=== PATIENT | female | born 1955 | race Caucasian/White ===

== ENCOUNTER 2017-04-10 08:52 | Emergency (ER) | payer OTHER ==
--- NOTE | 2017-04-10 09:11 | ED.ADGEN ---
Past History Past Medical History: Arthritis Additional Past Surgical Histo: knee surgery Smoking: Cigarettes Alcohol Use: None Drug Use: None Social History Narrative: lives at home Adult General HPI HPI Patient is a 61 year old email who presents with concerns for stroke which actually had occurred 2-3 months ago the daughter was concerned that and never got evaluated the patient had persistent symptoms: Deficits included left arm weakness and some slight gait instability and perhaps some slurred speech questionable receptive or expressive aphasia. Recently seen by primary care physician 1 week ago with blood work obtained MRI was ordered but never obtained. Patient denies headache blurry vision shortness of breath chest pain abdominal pain or poor oral intake. Denies any new deficits. Review of Systems Review of Systems Constitutional: Denies fever or chills [] Eyes: Denies change in visual acuity, redness, or eye pain [] HENT: Denies nasal congestion or sore throat [] Respiratory: Denies cough or shortness of breath [] Cardiovascular: No additional information not addressed in HPI [] GI: Denies abdominal pain, nausea, vomiting, bloody stools or diarrhea [] : Denies dysuria or hematuria [] Musculoskeletal: Denies back pain or joint pain [] Integument: Denies rash or skin lesions [] Neurologic: Denies headache, focal weakness or sensory changes [] Endocrine: Denies polyuria or polydipsia [] Current Medications Current Medications Current Medications Medications (Trade) Dose Ordered Sig/Natividad Start Time Stop Time Status Last Admin Dose Admin Iohexol (Omnipaque 300 Mg/ml) 75 ml 1X ONCE 04/10/17 09:30 04/10/17 09:31 DC Allergies Allergies Allergies Coded Allergies Type Severity Reaction Last Updated Verified Penicillins Allergy Intermediate 04/10/17 Yes Physical Exam Physical Exam Constitutional: Well developed, well nourished, no acute distress, non-toxic appearance. [] HENT: Normocephalic, atraumatic, bilateral external ears normal, oropharynx moist, no oral exudates, nose normal. [] Eyes: PERRLA, EOMI, conjunctiva normal, no discharge. [] Neck: Normal range of motion, no tenderness, supple, no stridor. [] Cardiovascular:Heart rate regular rhythm, systolic ejection murmur 2 out of 6 heard best over the aortic valve [] Lungs & Thorax: Bilateral breath sounds clear to auscultation [] Abdomen: Bowel sounds normal, soft, no tenderness, no masses, no pulsatile masses. [] Skin: Warm, dry, no erythema, no rash. [] Back: No tenderness, no CVA tenderness. [] Extremities: No tenderness, no cyanosis, no clubbing, ROM intact, no edema. 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 Coordination slightly decreased with a left arm on finger to nose, normal sensory function, slight decrease in strength to the left leg. [NIH score estimated at approx 4] Psychologic: Affect normal, judgement normal, mood normal. [] Current Patient Data Vital Signs Vital Signs Date Time Temp Pulse Resp B/P (MAP) Pulse Ox O2 Delivery O2 Flow Rate FiO2 04/10/17 09:16 97.8 97 18 98 Room Air Lab Results Laboratory Tests Test 04/10/17 09:16 White Blood Count 7.5 x10^3/uL (4.0-11.0) Red Blood Count 5.56 x10^6/uL (3.50-5.40) H Hemoglobin 15.4 g/dL (12.0-15.5) Hematocrit 45.8 % (36.0-47.0) Mean Corpuscular Volume 82 fL (79-100) Mean Corpuscular Hemoglobin 28 pg (25-35) Mean Corpuscular Hemoglobin Concent 34 g/dL (31-37) Red Cell Distribution Width 14.4 % (11.5-14.5) Platelet Count 290 x10^3/uL (140-400) Neutrophils (%) (Auto) 69 % (31-73) Lymphocytes (%) (Auto) 21 % (24-48) L Monocytes (%) (Auto) 7 % (0-9) Eosinophils (%) (Auto) 2 % (0-3) Basophils (%) (Auto) 1 % (0-3) Neutrophils # (Auto) 5.2 x10^3uL (1.8-7.7) Lymphocytes # (Auto) 1.6 x10^3/uL (1.0-4.8) Monocytes # (Auto) 0.6 x10^3/uL (0.0-1.1) Eosinophils # (Auto) 0.1 x10^3/uL (0.0-0.7) Basophils # (Auto) 0.0 x10^3/uL (0.0-0.2) EKG EKG EKG shows sinus rhythm rate of 89 no STEMI QTC of 461 with a left axis deviation time of interpretation 0 9:31 AM [] Radiology/Procedures Radiology/Procedures CTA head and neck Chest x-ray [] Course & Med Decision Making Course & Med Decision Making Pertinent Labs and Imaging studies reviewed. (See chart for details) [] Final Impression Final Impression [] Problems: Dragon Disclaimer Dragon Disclaimer This electronic medical record was generated, in whole or in part, using a voice recognition dictation system. SKYLAR SULTANA MD Apr 10, 2017 09:11
[2017-04-10] MEDS ORDERED: IOHEXOL 300 MG/ML 75 ML VIAL. IV ONE (09:30)
--- NOTE | 2017-04-10 09:31 | EKG ---
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
[2017-04-10 09:33] LABS: BASO % 1 % (0-3); EOS # 0.1 x10^3/uL (0.0-0.7); EOS % 2 % (0-3); HEMATOCRIT 45.8 % (36.0-47.0); HEMOGLOBIN 15.4 g/dL (12.0-15.5); LYMPH # 1.6 x10^3/uL (1.0-4.8); LYMPH % 21 % (24-48); MEAN CORPUSCULAR HEMOGLOBIN 28 pg (25-35); MEAN CORPUSCULAR HGB CONC 34 g/dL (31-37); MEAN CORPUSCULAR VOLUME 82 fL (79-100); MONO # 0.6 x10^3/uL (0.0-1.1); MONO % 7 % (0-9); NEUT # 5.2 x10^3uL (1.8-7.7); NEUT % 69 % (31-73); PLATELET COUNT 290 x10^3/uL (140-400); RED BLOOD COUNT 5.56 x10^6/uL (3.50-5.40); RED CELL DISTRIBUTION WIDTH 14.4 % (11.5-14.5); WHITE BLOOD COUNT 7.5 x10^3/uL (4.0-11.0)
[2017-04-10 09:44] LABS: ALBUMIN 3.6 g/dL (3.4-5.0); ALBUMIN/GLOBULIN RATIO 0.8 (1.0-1.7); CALCIUM 9.3 mg/dL (8.5-10.1); CREATININE 0.8 mg/dL (0.6-1.0); GFR 72.9; POTASSIUM 3.5 mmol/L (3.5-5.1); TOTAL BILIRUBIN 0.7 mg/dL (0.2-1.0); TOTAL PROTEIN 7.9 g/dL (6.4-8.2)
--- NOTE | 2017-04-10 10:58 | RAD ---
CTA of the neck and head with contrast 04/10/2017 Clinical history: Prior stroke symptoms with left arm weakness for 2 months. Technique: After the intravenous administration of 75 cc of Omnipaque 300, contiguous, 0.625 mm axial sections were obtained through the upper chest, neck and head. Multiplanar 3-D MIP and volume rendered 3-D reconstructed images were obtained. One or more of the following individualized dose reduction techniques were utilized for this study: 1. Automated exposure control. 2. Adjustment of the mA and/or kV according to patient size. 3. Use of iterative reconstruction technique. Stenosis calculations for CTA are based upon the NASCET methodology. Findings: Mild to moderate atherosclerotic plaque formation is seen involving the thoracic aortic arch and its branches. The origin of the brachiocephalic artery is patent. A 50% stenosis is seen involving the proximal left common carotid artery at its origin. This measures 6 mm in length. Moderate atheromatous plaque formation is seen involving the left subclavian artery. No hemodynamically significant stenosis is seen. The origin of the right vertebral artery is patent. The origin of the left vertebral artery is not well evaluated due to its orientation but appears to be grossly patent. Mild to moderate atheromatous/atherosclerotic plaque formation is seen involving both carotid bifurcations and proximal internal carotid arteries bilaterally. No hemodynamically significant stenosis is seen. Both internal carotid arteries within the neck appear small but patent. The left vertebral artery is dominant. Both vertebral arteries demonstrate normal antegrade flow. No area of stenosis or occlusion is seen. Intracranially scattered atherosclerotic plaque formation is seen involving the cavernous portions of both internal carotid arteries. No area of stenosis or occlusion is seen. The basilar artery is patent. The anterior, middle and posterior cerebral arteries and their branches are patent. No area of stenosis or occlusion is seen. No intracranial aneurysm is noted. Mild to moderate mucosal thickening is seen throughout the paranasal sinuses. No acute soft tissue abnormality is seen involving the neck. Degenerative changes are seen involving the uncovertebral and facet joints throughout the cervical spine. Impression: 1. A 50% stenosis is seen involving the proximal left common carotid artery at its origin. This measures 6 millimeters in length. 2. Mild to moderate atheromatous/atherosclerotic plaque formation is seen involving both carotid bifurcations. No hemodynamically significant stenosis or area of occlusion is seen. 3. No intracranial stenosis or area of occlusion is seen.
--- NOTE | 2017-04-10 10:59 | RAD ---
EXAM: Chest one view. HISTORY: Cerebrovascular accident, heart murmur. COMPARISON: 07/17/2016. FINDINGS: A frontal view of the chest is obtained. There is mild basilar atelectasis. Scattered calcified granulomas are noted bilaterally. There is no pneumothorax or pleural effusion. The heart is not enlarged. There are atherosclerotic calcifications of the aorta. IMPRESSION: 1. No confluent infiltrates.
[2017-04-10 12:25] VITALS: BP 152/83
== END 2017-04-10 13:04 | disposition home or self-care (01) ==
LOC: ER 08:52
DX: R53.1 Weakness (principal); R47.81 Slurred speech; M19.90 Unspecified osteoarthritis, unspecified site; F17.210 Nicotine dependence, cigarettes, uncomplicated; Z88.0 Allergy status to penicillin
CPT/HCPCS: 36415; 70496; 70498; 71010; 80053; 84484; 85027; 93005; 99285; Q9967

== ENCOUNTER → 2017-05-23 | Outpatient (CLI) | payer OTHER ==
--- NOTE | 2017-05-23 15:32 | RAD ---
Lumbar spine, 5 views, 05/23/2017: History: Back pain There is a mild left convexity lumbar scoliosis. The lumbar vertebral heights are well-maintained. There are mild scattered marginal spurs. There is mild narrowing of the L5-S1 disc space. There are mild degenerative changes involving the facet joints in the lower lumbar spine with a slight associated spondylolisthesis at L4-5. There is no evidence of spondylolysis. Aortoiliac calcific plaquing is present. IMPRESSION: 1. Mild scattered degenerative changes. 2. Minimal spondylolisthesis at L4-5 due to facet joint arthropathy. 3. No acute bony abnormality is detected. Thoracic spine, 3 views, 05/23/2017: The vertebral heights are well-maintained. There are mild scattered marginal spurs. No fracture or dislocation is evident. IMPRESSION: 1. Mild marginal spurring. 2. No acute abnormality is detected.
== END | disposition home or self-care (01) ==
LOC: DXRADRC 14:54
PROVIDERS: ATTEND Physician Assistant Medical
DX: M43.16 Spondylolisthesis, lumbar region (principal); M12.88 Other specific arthropathies, not elsewhere classified, other specified site
CPT/HCPCS: 72072; 72110

== ENCOUNTER 2017-12-08 12:05 | Observation (INO) | payer OTHER ==
[~2017-12-08] VITALS: Ht 157.5 cm; Wt 64.9 kg
--- NOTE | 2017-12-08 12:57 | RAD ---
PQRS Compliance Statement: One or more of the following individualized dose reduction techniques were utilized for this examination: 1. Automated exposure control 2. Adjustment of the mA and/or kV according to patient size 3. Use of iterative reconstruction technique CT HEAD AND CERVICAL SPINE WITHOUT CONTRAST History: fall yesterday, headache and dizziness with neck pain. Comparison: None. Procedure: Axial images are obtained of the head from the skull base through the vertex without IV contrast. Noncontrast helical CT of the cervical spine was performed. Axial, sagittal, and coronal reconstructions were obtained. Head Findings: The ventricles and sulci are prominent, consistent with age-related cerebral atrophy. There is scattered periventricular white matter hypoattenuation. This is a nonspecific finding but is commonly due to chronic small vessel ischemic disease in a patient of this age. Old left basal ganglia lacunar infarct. There are old lacunar infarcts of the right and left centrum semiovale that are new from prior study. No mass-effect, midline shift, hemorrhage or obvious acute infarction is identified. Basilar cisterns are patent. Bone windows demonstrate no significant calvarial abnormality. The visualized paranasal sinuses appear clear. Mastoid air cells are well aerated. Cervical Spine Findings: There is no evidence of acute fracture or acute malalignment. No jumped or perched facets. Mild facet hypertrophy. The vertebral body height and alignment are maintained. Straightening of normal cervical lordosis may be positional or due to muscle spasm. There is disc space narrowing and degenerative endplate spurring that is most advanced at C5/C6. Visualized soft tissues of the neck demonstrate no significant abnormalities. The visualized lung apices are clear. IMPRESSION: 1. No acute intracranial abnormality. Chronic findings as above. 2. No acute fracture of the cervical spine.
--- NOTE | 2017-12-08 13:21 | PHYS DOC ---
Past History Past Medical History: Arthritis, CVA, Diabetes, High Cholesterol, Hypertension Past Surgical History: Knee Replacement Additional Past Surgical Histo: knee surgery Smoking: Quit Greater Than 1 Year Alcohol Use: None Drug Use: None Adult General Chief Complaint Chief Complaint: LOWEREXTREMITY INJURY HPI HPI 61-year-old female patient had an unwitnessed fall at home while she was at shower and complaining of pain in left hip. Patient complaining of pain in left knee and hip area at arrival to ER and denies loss of consciousness. Patient's family member states she does not have change of mental status and was able to walk but it was painful. Patient currently taking Plavix. Review of Systems Review of Systems Constitutional: Denies fever or chills [] Eyes: Denies change in visual acuity, redness, or eye pain [] HENT: Denies nasal congestion or sore throat [] Respiratory: Denies cough or shortness of breath [] Cardiovascular: No additional information not addressed in HPI [] GI: Denies abdominal pain, nausea, vomiting, bloody stools or diarrhea [] : Denies dysuria or hematuria [] Musculoskeletal: Denies back pain, reports joint pain [] Integument: Denies rash or skin lesions [] Neurologic: Denies headache, focal weakness or sensory changes [] Endocrine: Denies polyuria or polydipsia [] All other systems were reviewed and found to be within normal limits, except as documented in this note. Allergies Allergies Allergies Coded Allergies Type Severity Reaction Last Updated Verified Penicillins Allergy Intermediate 04/10/17 Yes Physical Exam Physical Exam Constitutional: Well nourished, mild distress, non-toxic appearance. [] HENT: Normocephalic, atraumatic, bilateral external ears normal, oropharynx moist, no oral exudates, nose normal. [] Eyes: PERRLA, EOMI, conjunctiva normal, no discharge. [] Neck: Normal range of motion, no tenderness, supple, no stridor. [] Cardiovascular:Heart rate regular rhythm, no murmur [] Lungs & Thorax: Bilateral breath sounds clear to auscultation [] Abdomen: Bowel sounds normal, soft, no tenderness, no masses, no pulsatile masses. [] Skin: Warm, dry, no erythema, no rash. [] Back: No tenderness, no CVA tenderness. [] Extremities: Atraumatic, no deformity, mild tenderness in left pubis area, normal range of motion of pelvis and knee, no contusion Neurologic: Alert and oriented X 3, normal motor function, normal sensory function, no focal deficits noted. [] Psychologic: Affect normal, judgement normal, mood normal. [] Current Patient Data Vital Signs Vital Signs Date Time Temp Pulse Resp B/P (MAP) Pulse Ox O2 Delivery O2 Flow Rate FiO2 12/08/17 12:20 97.4 89 18 100 Room Air EKG EKG [ [address] [address] IMAGING REPORT Signed PATIENT: YURI THOMAS ACCOUNT: [id number] : 1955 LOCATION: ER AGE: 61 SEX: F EXAM [id number] STATUS: REG ER ORD. PHYSICIAN: BENEDICT THORNTON MD REASON: Fell PROCEDURE: HIP LEFT 2V WITH PELVIS; KNEE LEFT 3V KNEE LEFT 3V, HIP LEFT 2V WITH PELVIS Clinical Indication: Fell yesterday, knee and hip pain. Comparison: None. Findings: There is a nondisplaced possibly incomplete fracture of the left inferior pubic ramus. The fracture is favored to be acute. No other pelvic fracture is identified. Sacroiliac joints are symmetric. The hip joints are intact. No acute fracture or dislocation of the left hip. There is a lateral plate and screws of the proximal tibia. There are marginal osteophytes of all 3 compartments of the knee. Chronic deformity of the lateral tibial plateau. No acute fracture about the knee. No joint effusion is seen. IMPRESSION: 1. Acute nondisplaced possibly incomplete fracture of the left inferior pubic ramus. 2. No acute fracture of the left hip or knee. DICTATED AND SIGNED BY: BRANDON JUARES MD [address] [address] IMAGING REPORT Signed PATIENT: YURI THOMAS ACCOUNT: [id number] : 1955 LOCATION: ER AGE: 61 SEX: F EXAM STATUS: REG ER ORD. PHYSICIAN: BENEDICT THORNTON MD REASON: fall PROCEDURE: CT HEAD AND CERVICAL SPINE WO RS Compliance Statement: One or more of the following individualized dose reduction techniques were utilized for this examination: 1. Automated exposure control 2. Adjustment of the mA and/or kV according to patient size 3. Use of iterative reconstruction technique CT HEAD AND CERVICAL SPINE WITHOUT CONTRAST History: fall yesterday, headache and dizziness with neck pain. Comparison: None. Procedure: Axial images are obtained of the head from the skull base through the vertex without IV contrast. Noncontrast helical CT of the cervical spine was performed. Axial, sagittal, and coronal reconstructions were obtained. Head Findings: The ventricles and sulci are prominent, consistent with age-related cerebral atrophy. There is scattered periventricular white matter hypoattenuation. This is a nonspecific finding but is commonly due to chronic small vessel ischemic disease in a patient of this age. Old left basal ganglia lacunar infarct. There are old lacunar infarcts of the right and left centrum semiovale that are new from prior study. No mass-effect, midline shift, hemorrhage or obvious acute infarction is identified. Basilar cisterns are patent. Bone windows demonstrate no significant calvarial abnormality. The visualized paranasal sinuses appear clear. Mastoid air cells are well aerated. Cervical Spine Findings: There is no evidence of acute fracture or acute malalignment. No jumped or perched facets. Mild facet hypertrophy. The vertebral body height and alignment are maintained. Straightening of normal cervical lordosis may be positional or due to muscle spasm. There is disc space narrowing and degenerative endplate spurring that is most advanced at C5/C6. Visualized soft tissues of the neck demonstrate no significant abnormalities. The visualized lung apices are clear. IMPRESSION: 1. No acute intracranial abnormality. Chronic findings as above. 2. No acute fracture of the cervical spine. DICTATED AND SIGNED BY: BRANDON JUARES MD DATE: 12/08/17 1247 CC: BENEDICT THORNTON MD; MELQUIADES MEDEROS ~ DATE: 12/08/17 1354 CC: BENEDICT THORNTON MD; MELQUIADES MEDEROS ~ ] Radiology/Procedures Radiology/Procedures [] [address] [address] IMAGING REPORT Signed PATIENT: YURI THOMAS ACCOUNT: [id number] : 1955 LOCATION: ER AGE: 61 SEX: F EXAM STATUS: REG ER ORD. PHYSICIAN: BENEDICT THORNTON MD REASON: fall PROCEDURE: CT HEAD AND CERVICAL SPINE [facility] Compliance Statement: One or more of the following individualized dose reduction techniques were utilized for this examination: 1. Automated exposure control 2. Adjustment of the mA and/or kV according to patient size 3. Use of iterative reconstruction technique CT HEAD AND CERVICAL SPINE WITHOUT CONTRAST History: fall yesterday, headache and dizziness with neck pain. Comparison: None. Procedure: Axial images are obtained of the head from the skull base through the vertex without IV contrast. Noncontrast helical CT of the cervical spine was performed. Axial, sagittal, and coronal reconstructions were obtained. Head Findings: The ventricles and sulci are prominent, consistent with age-related cerebral atrophy. There is scattered periventricular white matter hypoattenuation. This is a nonspecific finding but is commonly due to chronic small vessel ischemic disease in a patient of this age. Old left basal ganglia lacunar infarct. There are old lacunar infarcts of the right and left centrum semiovale that are new from prior study. No mass-effect, midline shift, hemorrhage or obvious acute infarction is identified. Basilar cisterns are patent. Bone windows demonstrate no significant calvarial abnormality. The visualized paranasal sinuses appear clear. Mastoid air cells are well aerated. Cervical Spine Findings: There is no evidence of acute fracture or acute malalignment. No jumped or perched facets. Mild facet hypertrophy. The vertebral body height and alignment are maintained. Straightening of normal cervical lordosis may be positional or due to muscle spasm. There is disc space narrowing and degenerative endplate spurring that is most advanced at C5/C6. Visualized soft tissues of the neck demonstrate no significant abnormalities. The visualized lung apices are clear. IMPRESSION: 1. No acute intracranial abnormality. Chronic findings as above. 2. No acute fracture of the cervical spine. DICTATED AND SIGNED BY: BRANDON JUARES MD DATE: 12/08/17 1249 CC: BENEDICT THORNTON MD; MELQUIADES MEDEROS ~ Course & Med Decision Making Course & Med Decision Making Pertinent Labs and Imaging studies reviewed. (See chart for details) [ Evaluation of patient in ER showed 61-year-old female patient with a fall and complaining of pain in left hip area. Patient had nondisplaced fracture of inferior pubis ramus. Labs was unremarkable. Plan to admit patient was of pubis fracture. Dr. Mccray accepted admission at 1422. Dragon Disclaimer Dragon Disclaimer This electronic medical record was generated, in whole or in part, using a voice recognition dictation system. Departure Departure: Impression: Primary Impression: Closed fracture of left inferior pubic ramus Additional Impressions: Fall at home History of diabetes mellitus Disposition: 09 ADMITTED INPATIENT (At 1423) Condition: IMPROVED Referrals: MELQUIADES MEDEROS (PCP) Problem Qualifiers BENEDICT THORNTON MD Dec 08, 2017 13:21
[2017-12-08] MEDS ORDERED: ACET-704 PO (14:01)
--- NOTE | 2017-12-08 14:03 | RAD ---
KNEE LEFT 3V, HIP LEFT 2V WITH PELVIS Clinical Indication: Fell yesterday, knee and hip pain. Comparison: None. Findings: There is a nondisplaced possibly incomplete fracture of the left inferior pubic ramus. The fracture is favored to be acute. No other pelvic fracture is identified. Sacroiliac joints are symmetric. The hip joints are intact. No acute fracture or dislocation of the left hip. There is a lateral plate and screws of the proximal tibia. There are marginal osteophytes of all 3 compartments of the knee. Chronic deformity of the lateral tibial plateau. No acute fracture about the knee. No joint effusion is seen. IMPRESSION: 1. Acute nondisplaced possibly incomplete fracture of the left inferior pubic ramus. 2. No acute fracture of the left hip or knee.
[2017-12-08 14:44] LABS: BASO % 0 % (0-3); EOS # 0.1 x10^3/uL (0.0-0.7); EOS % 1 % (0-3); HEMATOCRIT 42.2 % (36.0-47.0); HEMOGLOBIN 14.4 g/dL (12.0-15.5); LYMPH % 18 % (24-48); MEAN CORPUSCULAR HEMOGLOBIN 29 pg (25-35); MEAN CORPUSCULAR HGB CONC 34 g/dL (31-37); MEAN CORPUSCULAR VOLUME 84 fL (79-100); MONO # 0.8 x10^3/uL (0.0-1.1); MONO % 7 % (0-9); NEUT # 7.9 x10^3uL (1.8-7.7); NEUT % 73 % (31-73); PLATELET COUNT 300 x10^3/uL (140-400); RED BLOOD COUNT 5.02 x10^6/uL (3.50-5.40); RED CELL DISTRIBUTION WIDTH 15.6 % (11.5-14.5); WHITE BLOOD COUNT 10.8 x10^3/uL (4.0-11.0)
[2017-12-08 14:55] LABS: ALBUMIN 3.6 g/dL (3.4-5.0); ALBUMIN/GLOBULIN RATIO 0.9 (1.0-1.7); CALCIUM 9.5 mg/dL (8.5-10.1); CREATININE 0.8 mg/dL (0.6-1.0); GFR 72.9; POTASSIUM 4.1 mmol/L (3.5-5.1); TOTAL BILIRUBIN 0.8 mg/dL (0.2-1.0); TOTAL PROTEIN 7.8 g/dL (6.4-8.2)
[2017-12-08] MEDS ORDERED: ASPI-630 PO (15:57)
[2017-12-08] MEDS ORDERED: CLOP75TA57 PO (15:58)
[2017-12-08] MEDS ORDERED: INSU100C SQ (15:58)
[2017-12-08 16:14] VITALS: BP 148/67
[2017-12-08] MEDS ORDERED: ATORVASTATIN CA80 MG PO (16:26)
[2017-12-08] MEDS ORDERED: LISI10TA2 PO (16:26)
[2017-12-08] MEDS ORDERED: INSU100I13 SQ (16:26)
[2017-12-08] MEDS: INSULIN ASPART 300 UNITS/3 ML INSULN.PEN SQ SCH (17:30)
[2017-12-08] MEDS: CLOPIDOGREL BISULFATE 75 MG TABLET PO SCH (17:38)
[2017-12-08] MEDS: LISINOPRIL 10 MG TABLET PO SCH (17:38)
[2017-12-08] MEDS: ASPIRIN 81 MG TAB.CHEW PO SCH (17:39)
[2017-12-08 18:57] VITALS: BP 139/65
[2017-12-08] MEDS: ATORVASTATIN CALCIUM 20 MG TABLET PO SCH (21:46)
[2017-12-08] MEDS: INSULIN DETEMIR 300 UNITS/3 ML INSULN.PEN. SQ SCH (21:51)
[2017-12-08 22:28] VITALS: BP 105/63
[2017-12-09 06:20] VITALS: BP 106/58
[2017-12-09] MEDS ORDERED: ENOXAPARIN 30 MG/0.3 ML DISP.SYRIN. SQ SCH (06:30)
[2017-12-09] MEDS: INSULIN ASPART 300 UNITS/3 ML INSULN.PEN SQ SCH ×4 (07:30→21:09)
[2017-12-09] MEDS ORDERED: DEXTROSE 50% 25 GM / 50ML DISP.SYRIN. IV PRN (08:30)
[2017-12-09] MEDS: LISINOPRIL 10 MG TABLET PO SCH (08:34)
[2017-12-09] MEDS: ASPIRIN 81 MG TAB.CHEW PO SCH (08:34)
[2017-12-09] MEDS: CLOPIDOGREL BISULFATE 75 MG TABLET PO SCH (08:34)
[2017-12-09] MEDS ORDERED: PNEUMOC CONJ VACC 23-VALENT 0.5 ML VIAL. VAX IM ONE (09:00)
[2017-12-09] MEDS ORDERED: LISINOPRIL 10 MG TABLET PO SCH (09:00)
[2017-12-09] MEDS ORDERED: CLOPIDOGREL BISULFATE 75 MG TABLET PO SCH (09:00)
[2017-12-09] MEDS ORDERED: ATORVASTATIN CALCIUM 20 MG TABLET PO SCH (09:00)
[2017-12-09] MEDS ORDERED: ASPIRIN 81 MG TAB.CHEW PO SCH (09:00)
[2017-12-09 10:53] VITALS: BP 90/59
[2017-12-09 15:09] VITALS: BP 117/57
[2017-12-09] MEDS ORDERED: INSULIN ASPART 300 UNITS/3 ML INSULN.PEN SQ SCH (16:30)
[2017-12-09 19:36] VITALS: BP 144/78
[2017-12-09] MEDS: ATORVASTATIN CALCIUM 20 MG TABLET PO SCH (21:10)
[2017-12-09] MEDS: traMADol 50 MG TABLET PO PRN (21:11)
[2017-12-09] MEDS: INSULIN DETEMIR 300 UNITS/3 ML INSULN.PEN. SQ SCH (21:16)
[2017-12-09 22:42] LABS: CLARITY,URINE CLOUDY; COLOR,URINE YELLOW
[2017-12-09 22:43] LABS: BACTERIA,URINE MANY /HPF (0-FEW); BILIRUBIN,URINE NEG (NEG); GLUCOSE,URINE NEG (NEG); NITRITE,URINE POS (NEG); RBC,URINE 0 /HPF (0-2); SQUAMOUS EPITHELIAL CELL,UR FEW /LPF; UROBILINOGEN,URINE 1 mg/dL (0.2 mg/dL); WBC,URINE >40 /HPF (0-4)
--- NOTE | 2017-12-09 23:35 | HP ---
ADMIT DATE: 12/08/2017 REASON FOR ADMISSION: Fall with fractured pubic rami. HISTORY OF PRESENT ILLNESS: This is a 61-year-old female who was getting out of the shower yesterday and when she was getting dressed, she fell, complaining of left knee pain as well as some hip pain, found to have an incomplete fracture of the pubic rami, was able to walk, was having a lot of pain. No loss of consciousness. PAST MEDICAL HISTORY: CVA, hypertension, diabetes. IMMUNIZATIONS: I am not sure whether she got the flu shot. HABITS: No alcohol. Quit smoking a year ago, used to work at [employer], now retired. She lives at home. Daughter lives with her. The patient no longer drives. She states her daughter will not let her because of her stroke. REVIEW OF SYSTEMS: Positive for tickle in her throat. No shortness of breath, no chest pain, no fever. Denies urinary problems. Denies problems with her bowel. Denies weight change. PHYSICAL EXAMINATION: VITAL SIGNS: Blood pressure 106/58, pulse 77, respirations 20, pulse ox 97% on 2.5 liters, temperature 98.1. GENERAL: A pleasant 61-year-old, in no acute distress. HEENT: Hearing is normal. Pupils are equal, round, and reactive to light. Extraocular muscles were intact. Nose is patent. Throat clear. Has a little bit of postnasal drip. NECK: Supple, without adenopathy. LUNGS: Clear to auscultation without wheezes or rhonchi, but she does have a slight cough. CARDIOVASCULAR: Regular rhythm and rate with a 2/6 murmur heard at the aortic area. ABDOMEN: Soft, nontender. MUSCULOSKELETAL: Iliac crests palpation, nontender. Hip nontender. EXTREMITIES: Without edema. Left knee, very tender to flex and extend, but no swelling, no redness. Extremity is warm. Pulses are intact. DIAGNOSTIC DATA: X-rays: No acute fracture of the left hip or knee, there is an acute nondisplaced possibly incomplete fracture of the left inferior pubic rami. She also has lateral plate and screws in the proximal tibia. Her CT of the head and cervical spine, no acute intracranial abnormality and no acute fracture of the cervical spine. She has an old left basal ganglia and lacunar infarct also on the right and left centrum. Hip and pelvis x-ray as stated before. ASSESSMENT: 1. Possible incomplete fracture of the pubic rami. 2. Left knee pain after a fall. 3. Status post fall. PLAN: We will make PT and OT evaluation and home health if insurance will not cover rehabilitation. JASMEET ENRIQUEZ DO DR: PAT/dodie JOB#: [id number] / [id number]
[2017-12-09 23:36] VITALS: BP 121/73
[2017-12-10] MEDS: ACETAMINOPHEN 325 MG TABLET PO PRN ×2 (05:18→15:25)
[2017-12-10 06:28] VITALS: BP 144/78
[2017-12-10] MEDS: LISINOPRIL 10 MG TABLET PO SCH (08:58)
[2017-12-10] MEDS: ASPIRIN 81 MG TAB.CHEW PO SCH (08:58)
[2017-12-10] MEDS: CLOPIDOGREL BISULFATE 75 MG TABLET PO SCH (08:58)
[2017-12-10] MEDS: ENOXAPARIN 40 MG/0.4 ML DISP.SYRIN. SQ SCH (08:59)
[2017-12-10] MEDS: traMADol 50 MG TABLET PO PRN ×3 (09:02→21:07)
[2017-12-10 10:41] VITALS: BP 119/61
[2017-12-10] MEDS: INSULIN ASPART 300 UNITS/3 ML INSULN.PEN SQ SCH ×2 (11:30→16:30)
[2017-12-10 15:11] VITALS: BP 132/80
[2017-12-10 18:30] VITALS: BP 119/62
[2017-12-10] MEDS: ATORVASTATIN CALCIUM 20 MG TABLET PO SCH (21:06)
[2017-12-10] MEDS: LACTOBACILLUS RHAMNOSUS GG 1 CAPSULE. PO SCH (21:06)
[2017-12-10] MEDS: CIPROFLOXACIN HCL 500 MG TABLET PO SCH (21:06)
[2017-12-10] MEDS: INSULIN DETEMIR 300 UNITS/3 ML INSULN.PEN. SQ SCH (21:17)
[2017-12-10 23:02] VITALS: BP 125/75
--- NOTE | 2017-12-11 02:12 | PN ---
DATE: 12/10/2017 SUBJECTIVE: The patient is a 61-year-old female patient who apparently was admitted to the Emergency Room after she got out of the shower and she was getting dressed. She fell, complaining of left knee pain as well as some hip pain, was found to have incomplete fracture of the pubic rami, was able to walk with having lot of pain, no loss of consciousness. She was admitted for possible incomplete fracture of the pubic rami, left knee pain after a fall, was admitted for pain control and started the process of physical and occupational therapy. When I saw her this afternoon, she was resting flat, comfortably in bed, in no apparent distress. On questioning her, she is still complaining of pain mostly in her left knee joint. Denied any other complaint. PHYSICAL EXAMINATION: GENERAL: When I examined her, she was pale, but no jaundice, cyanosis, or thyromegaly. No jugular venous distention. No limb edema. VITAL SIGNS: Her heart rate was 96, blood pressure 132/80, temperature was 99, respiratory rate 20, and oxygen saturation was 97% on room air. HEAD, EYES, EARS, NOSE AND THROAT: Showed normocephalic, atraumatic. NECK: Supple. HEART: Showed normal first and second sounds. No gallop, rub or murmur. CHEST: Clear to auscultation. No crepitation or rhonchi. ABDOMEN: Distended, soft, nontender. No guarding or rigidity. No organomegaly. Hernial orifice intact. Bowel sounds normal. NEUROLOGIC: She was awake, alert, responding appropriately. Fjdtsy-ki-jmxb intact. She moves upper extremities without difficulty. She is maintaining her left knee in a fixed flexion contraction because of severe pain, however, there is no obvious deformity. There is no obvious bruising. DIAGNOSTIC DATA: She apparently has an x-ray of her knee, which showed that there is no acute fracture of the left hip or knee joint. There is a lateral plate and screw of the proximal tibia. There are marginal osteophytes of all 3 compartments of the knee, chronic deformity of the lateral tibial plateau. No acute fracture about the knee. No joint effusion is seen. LABORATORY DATA: Showed her white cell count to be 10,800, hemoglobin 14.4, hematocrit 42, MCV 84 and platelet count of 300,000. Serum sodium 139, potassium 4.1, chloride 101, bicarbonate 28, anion gap of 10, BUN 14, creatinine 0.8, estimated GFR was 73 mL per minute. Glucose was 161, calcium was 9.5. Total bilirubin, AST, ALT, alkaline phosphatase were normal. Total protein was 7.8, albumin 3.6. PLAN: My plan is to continue with pain medication. Continue DVT prophylaxis. Continue with physical and occupational therapy. I will arrange for her to have a bone scan and decide on further management accordingly. ALDO RODRIGEZ MD DR: CARLITO/dodie JOB#: [id number] / [id number]
[2017-12-11] MEDS: ACETAMINOPHEN 325 MG TABLET PO PRN (05:16)
[2017-12-11 06:02] VITALS: BP 146/72
[2017-12-11 06:53] LABS: HEMATOCRIT 37.7 % (36.0-47.0); HEMOGLOBIN 12.6 g/dL (12.0-15.5); RED BLOOD COUNT 4.47 x10^6/uL (3.50-5.40); RED CELL DISTRIBUTION WIDTH 15.6 % (11.5-14.5); WHITE BLOOD COUNT 6.5 x10^3/uL (4.0-11.0)
[2017-12-11 07:11] LABS: ALBUMIN 3.2 g/dL (3.4-5.0); ALBUMIN/GLOBULIN RATIO 0.8 (1.0-1.7); CREATININE 0.9 mg/dL (0.6-1.0); GFR 63.7; POTASSIUM 4.3 mmol/L (3.5-5.1); TOTAL BILIRUBIN 0.6 mg/dL (0.2-1.0); TOTAL PROTEIN 7.3 g/dL (6.4-8.2)
[2017-12-11] MEDS: INSULIN ASPART 300 UNITS/3 ML INSULN.PEN SQ SCH ×4 (07:41→20:49)
[2017-12-11] MEDS: CIPROFLOXACIN HCL 500 MG TABLET PO SCH ×2 (08:08→20:39)
[2017-12-11] MEDS: CLOPIDOGREL BISULFATE 75 MG TABLET PO SCH (08:08)
[2017-12-11] MEDS: LISINOPRIL 10 MG TABLET PO SCH (08:09)
[2017-12-11] MEDS: ENOXAPARIN 40 MG/0.4 ML DISP.SYRIN. SQ SCH (08:09)
[2017-12-11] MEDS: ASPIRIN 81 MG TAB.CHEW PO SCH (08:09)
[2017-12-11] MEDS: LACTOBACILLUS RHAMNOSUS GG 1 CAPSULE. PO SCH ×2 (08:09→20:40)
[2017-12-11 10:25] VITALS: BP 102/61
[2017-12-11] MEDS: traMADol 50 MG TABLET PO PRN (12:38)
--- NOTE | 2017-12-11 14:34 | RAD ---
EXAM: Limited bone scintigram of. HISTORY: Fall with left hip and leg pain. Cannot bear weight. Left inferior pelvic ramus fracture. COMPARISON: Plain radiographs 12/08/2017. FINDINGS: 26.6 mCi technetium 99m MDP was administered intravenously. Delayed scintigraphic images of the pelvis and lower extremities were obtained in multiple projections. There is no clearly abnormal uptake at the site of the left inferior pubic ramus fracture seen on plain radiographs. There is asymmetric uptake along the left superior and medial acetabulum suggesting degenerative change. Mild uptake along the left lateral tibial plateau corresponds with a chronic healed internally fixed fracture is seen on radiographs. Mild uptake at the ankles is likely degenerative. No intense uptake is identified. IMPRESSION: 1. No clear abnormal uptake at the site of the left inferior pubic ramus fracture, though this can take days to develop in the setting of osteopenia. 2. Milder uptake at the left acetabulum may be degenerative or reflect a stress reaction. 3. Chronic healed internally fixed fracture of the left lateral tibial plateau.
[2017-12-11 16:00] VITALS: BP 106/60
[2017-12-11 19:33] VITALS: BP 111/57
[2017-12-11] MEDS: ATORVASTATIN CALCIUM 20 MG TABLET PO SCH (20:40)
[2017-12-11] MEDS: INSULIN DETEMIR 300 UNITS/3 ML INSULN.PEN. SQ SCH (20:54)
--- NOTE | 2017-12-11 23:26 | PN ---
DATE: 12/11/2017 SUBJECTIVE: The patient is resting, slightly propped up in bed, in no apparent distress. She is definitely more awake, alert, did not complain of any pain today. She did have a bone scan done, which showed that 1. There is no clear abnormal uptake at the site of the left inferior pubic ramus fracture, although this can take days to develop in the setting of osteopenia. 2. She has mild uptake at the left acetabulum, maybe degenerative or reflect a stress reaction. She has chronic healed internally fixated fracture of the left lateral tibial plateau. PHYSICAL EXAMINATION: GENERAL: When I examined her, she looked well and was clearly in no apparent respiratory distress, pale, but no jaundice, cyanosis or thyromegaly. No jugular venous distension. No lower limb edema. VITAL SIGNS: Her heart rate was 94, blood pressure 102/61, temperature was 97.5, respiratory rate 20, and oxygen saturation was 92%. HEAD, EYES, EARS, NOSE AND THROAT: Normocephalic, atraumatic. NECK: Supple. HEART: Showed normal first and second sounds. No gallop, rub or murmur. CHEST: Clear to auscultation. No crepitation or rhonchi. ABDOMEN: Slightly distended, soft, nontender. NEUROLOGIC: She is awake, alert, mostly at times confused. All cranial nerves intact. She moves extremities without difficulty. She is mostly bedbound, chair bound. She did work with physical therapy, walked with a walker. Her gait was very unsteady. Her intake was 740, output was 500. LABORATORY DATA: Her lab work this morning showed a white cell count 6500, hemoglobin 12.6, hematocrit 38, MCV 84, platelet count of 176,000. Her chemistry showed a serum sodium 138, potassium 4.3, chloride 102, bicarbonate 26, anion gap of 10, BUN 22, creatinine 0.9. Estimated GFR was 64 mL per minute. Her glucose 155, calcium was 9. Total bilirubin, AST, ALT, alkaline phosphatase were normal. Total protein was 7.3, albumin 3.2. Her urinalysis showed that the nitrite was positive with large amount of leukocyte esterase, more than 40 wbc's and we did start her on IV Rocephin with oral ciprofloxacin 500 mg p.o. b.i.d. Result of the culture and sensitivity still pending at the time of this dictation. ASSESSMENT: Fall with possible incomplete fracture of the pubic rami, left knee pain after a fall. Other medical problems including cerebrovascular accident, hypertension, type 2 diabetes. She has also urinary tract infection, on oral Cipro. The result of the culture and sensitivity still pending at the time of this dictation. PLAN: Continue with the oral antibiotic. Continue with DVT prophylaxis. Continue with PT, OT. Await the result of the culture and sensitivity. If stable, she can be discharged tomorrow to a alf facility. ALDO RODRIGEZ MD DR: CARLITO/dodie JOB#: [id number] / [id number]
[2017-12-11 23:48] VITALS: BP 114/51
[2017-12-12 05:46] VITALS: BP 101/66
[2017-12-12] MEDS: ASPIRIN 81 MG TAB.CHEW PO SCH (10:08)
[2017-12-12] MEDS: LACTOBACILLUS RHAMNOSUS GG 1 CAPSULE. PO SCH (10:08)
[2017-12-12] MEDS: CLOPIDOGREL BISULFATE 75 MG TABLET PO SCH (10:08)
[2017-12-12] MEDS: CIPROFLOXACIN HCL 500 MG TABLET PO SCH (10:08)
[2017-12-12] MEDS: LISINOPRIL 10 MG TABLET PO SCH (10:09)
[2017-12-12] MEDS: ENOXAPARIN 40 MG/0.4 ML DISP.SYRIN. SQ SCH (10:09)
[2017-12-12] MEDS: INSULIN ASPART 300 UNITS/3 ML INSULN.PEN SQ SCH (11:30)
[2017-12-12 11:41] VITALS: BP 113/67
--- NOTE | 2017-12-12 11:56 | RAD ---
CT LUMBAR SPINE WO CONTRAST, CT THORACIC SPINE WO CONTRAST Indication: Fall, back pain Technique: Noncontrast CT imaging was performed of the thoracic and lumbar spine, multiplanar reconstruction images submitted. One or more of the following individualized dose reduction techniques were utilized for this examination: 1. Automated exposure control 2. Adjustment of the mA and/or kV according to patient size 3. Use of iterative reconstruction technique. Contrast: None Comparison: None Thoracic spine: Findings: There is mild superior endplate concavity of T12, T11 and T3 without osseous retropulsion. There is relative bone demineralization. There is degenerative disc disease of visualized C5-C6 level. No significant osseous spinal stenosis is identified of the thoracic spine. There is mild narrowing of the posterior neural foramina on the right at T2-3, T3-4, and T8-T9 by facets. There is probable nodule posterior right thyroid gland 1.2 cm. There are scattered nodes of the mediastinum although not considered significantly enlarged short axis dimension, borderline right paratracheal node 0.9 cm short axis dimension. There is coronary calcification. There is very mild reverse S-shaped curvature of the thoracic spine. IMPRESSION: 1. There is mild superior endplate concavity of T3, T11, and T12 of uncertain chronicity, may be more recent. There is no osseous retropulsion at these levels. There is bone demineralization. 2. There is coronary calcification. 3. There is probable posterior right thyroid nodule. Lumbar spine: FINDINGS: There is severe L1 compression fracture is likely recent. There is some osseous retropulsion of the superior margin without significant spinal stenosis. There is relative sclerosis of the remaining vertebral body. There is bone demineralization. There is mild grade 1 anterior spondylolisthesis L4-5. There is dkyy-np-iiojsspt degenerative disc disease at L4-5 and minimally at L5-S1. Disc osteophyte complex and facet degenerative change results in xcpb-bd-pnpaxvvj narrowing of the left L5-S1 neural foramen. There is multilevel lumbar facet degenerative change. There is very mild lumbar dextroscoliosis. IMPRESSION: 1. There is severe, likely recent L1 compression fracture, some osseous retropulsion of the superior margin without significant spinal stenosis. 2. There is mild grade 1 anterior spondylolisthesis L4-5. 3. There is ehrr-rp-gsqcyrlc degenerative disc disease at L4-5, to lesser degree at L5-S1. Electronically signed by: Ruslan Acosta MD (12/12/2017 11:53 AM) [id number]
--- NOTE | 2017-12-12 11:56 | RAD ---
CT LUMBAR SPINE WO CONTRAST, CT THORACIC SPINE WO CONTRAST Indication: Fall, back pain Technique: Noncontrast CT imaging was performed of the thoracic and lumbar spine, multiplanar reconstruction images submitted. One or more of the following individualized dose reduction techniques were utilized for this examination: 1. Automated exposure control 2. Adjustment of the mA and/or kV according to patient size 3. Use of iterative reconstruction technique. Contrast: None Comparison: None Thoracic spine: Findings: There is mild superior endplate concavity of T12, T11 and T3 without osseous retropulsion. There is relative bone demineralization. There is degenerative disc disease of visualized C5-C6 level. No significant osseous spinal stenosis is identified of the thoracic spine. There is mild narrowing of the posterior neural foramina on the right at T2-3, T3-4, and T8-T9 by facets. There is probable nodule posterior right thyroid gland 1.2 cm. There are scattered nodes of the mediastinum although not considered significantly enlarged short axis dimension, borderline right paratracheal node 0.9 cm short axis dimension. There is coronary calcification. There is very mild reverse S-shaped curvature of the thoracic spine. IMPRESSION: 1. There is mild superior endplate concavity of T3, T11, and T12 of uncertain chronicity, may be more recent. There is no osseous retropulsion at these levels. There is bone demineralization. 2. There is coronary calcification. 3. There is probable posterior right thyroid nodule. Lumbar spine: FINDINGS: There is severe L1 compression fracture is likely recent. There is some osseous retropulsion of the superior margin without significant spinal stenosis. There is relative sclerosis of the remaining vertebral body. There is bone demineralization. There is mild grade 1 anterior spondylolisthesis L4-5. There is trzk-tg-coaorpzp degenerative disc disease at L4-5 and minimally at L5-S1. Disc osteophyte complex and facet degenerative change results in prbv-uj-nkqziets narrowing of the left L5-S1 neural foramen. There is multilevel lumbar facet degenerative change. There is very mild lumbar dextroscoliosis. IMPRESSION: 1. There is severe, likely recent L1 compression fracture, some osseous retropulsion of the superior margin without significant spinal stenosis. 2. There is mild grade 1 anterior spondylolisthesis L4-5. 3. There is fxiy-yf-lkydpmcn degenerative disc disease at L4-5, to lesser degree at L5-S1. Electronically signed by: Ruslan Acosta MD (12/12/2017 11:53 AM) [id number]
--- NOTE | 2017-12-12 12:48 | RAD ---
EXAM: Carotid Doppler sonogram. HISTORY: Transient ischemic attack, cerebrovascular accident, altered mental status. TECHNIQUE: Sorenson scale and color Doppler sonographic evaluation of the neck with spectral waveform analysis was performed and static images are submitted for review. FINDINGS: RIGHT: The peak systolic velocity within the common carotid artery is 79 cm/sec. The peak systolic velocity within the internal carotid artery is 77 cm/sec and the end diastolic velocity within the internal carotid artery is 34 cm/sec. The ICA/CCA ratio is 0.93. Grayscale images demonstrate mixed plaquing without clear grayscale stenosis. LEFT: The peak systolic velocity within the common carotid artery is 111 cm/sec. The peak systolic velocity within the internal carotid artery is 97 cm/sec and the end diastolic velocity within the internal carotid artery is 28 cm/sec. The ICA/CCA ratio is 0.88. Grayscale images demonstrate makes plaquing without clear grayscale stenosis. There is antegrade flow within both vertebral arteries. IMPRESSION: 1. No evidence of hemodynamically significant stenosis. PQRS Compliance Statement - Stenosis calculations for CT, MR and conventional angiography are based upon measurement of the distal ICA diameter in accordance with the NASCET methodology. Stenosis calculations for carotid ultrasound studies are derived from validated velocity criteria which are known to correlate with the NASCET methodology.
--- NOTE | 2017-12-12 22:03 | PN ---
DATE: 12/12/2017 REFERRING PHYSICIAN: Dr. Edge. SUBJECTIVE: The patient continues to complain of pain of the hips, mainly on the left side. She denies any headaches, visual disturbances, nausea, vomiting, chest pain, shortness of breath or palpitations. She also complains of difficulty walking secondary to weakness of the lower extremities and pain of the hips secondary to recent fall. OBJECTIVE: GENERAL: Well-developed, well-nourished white female, not in acute distress. VITAL SIGNS: Blood pressure 101/66, respiratory is 18, pulse is 92, temperature is 99.1, oxygen saturation 92% on room air. HEENT: Normocephalic, atraumatic, otherwise unremarkable. NECK: Supple. Negative for carotid bruit, lymphadenopathy or thyromegaly. LUNGS: Clear to A and P. CARDIOVASCULAR: Regular rate and rhythm, normal S1, S2. There is no S3, S4 or murmur. ABDOMEN: Soft. Bowel sounds positive. EXTREMITIES: Negative for cyanosis, clubbing, pitting edema. NEUROLOGIC: Mental Status: The patient is alert and oriented to place and time. Speech is fluent. There is no apparent language dysfunction. Memory, judgment, and abstract thinking are fair. The patient denies hallucination or delusion. Cranial nerves are grossly intact. No decreased range of motions. Motor examination: No focal muscle bulk was seen. Decreased range of motions of the left lower extremity secondary to knee and left hip pain. Strength was 4/5 throughout. Sensory examination revealed normal pinprick and light touch senses throughout. Deep tendon reflexes were symmetric and active with absent Achilles responses. Gait not tested. IMPRESSION: 1. Status post fall of uncertain etiology, probably secondary to generalized weakness. 2. History of stroke with decreased mobility and gait disturbances. 3. Urinary tract infections, may have contributed to the current symptoms. 4. Multiple medical problems of hypertension, hyperlipidemia and old stroke. RECOMMENDATIONS: 1. Continue with current management for urinary tract infections and pain controlled. 2. Await for echo and carotid Doppler study. 3. Rehabilitation and physical therapy. M Oralia PEACOCK MD DR: BLESSING/dodie JOB#: [id number] / [id number]
--- NOTE | 2017-12-12 22:15 | CONS ---
DATE OF CONSULTATION: 12/11/2017 REFERRING PHYSICIAN: Dr. Edge REASON FOR CONSULTATION: Rule out acute stroke. HISTORY OF PRESENT ILLNESS: This is a 61-year-old right-handed white female who was admitted through Emergency Room after she sustained a fall at home according to family members. According to her daughter, the patient was getting out of the shower and all of a sudden she fell and landed backwards. Subsequently, she started complaining of severe pain of the hips, more prominent on the left side. The patient stated she does not know how she fell, but she denies any preceding symptoms to the fall as chest pain, shortness of breath, cardiac arrhythmias or dizziness. According to the patient, she was helped by her daughter and transferred to the Emergency Room. The patient denies headaches, visual disturbances, nausea, vomiting, chest pain, shortness of breath or palpitation, dysarthria or dysphagia. However, the patient had slow response to questions. She appears to be having difficulty expressing herself. Apparently, the patient had a stroke in summer. She was admitted to [facility] and as a result of the stroke, she had difficulty talking, difficulty walking, and coordinating. Her daughter stated her symptoms have been the same since she has had a stroke, but she believes she got a little bit worse. She has been ambulating with a walker and sometimes a cane and she sustained several falls since the stroke. The patient is not able to provide further information. PAST MEDICAL HISTORY: Significant for stroke, hypertension, and diabetes mellitus, hyperlipidemia. PAST SURGICAL HISTORY: Fracture of the left proximal tibial plateau required surgery. SOCIAL HISTORY: The patient lives with her daughter. She is . She denies smoking, alcohol drinking, or illicit drug use. CURRENT MEDICATIONS: Tylenol, insulin, Lipitor 80 mg daily, tramadol 50 mg p.r.n., lisinopril 10 mg daily, Plavix 75 mg p.o. daily, aspirin 81 mg daily, and current hospital medications includes Cipro 500 mg twice a day. ALLERGIES: PENICILLIN. REVIEW OF SYSTEMS: A 10-point review of system was performed as mentioned above in history of present illness and consistent with pain of the hips more prominent on the left side, pain of the knees and difficulty walking. PHYSICAL EXAMINATION: GENERAL: Well-developed, well-nourished white female, not in acute distress. VITAL SIGNS: Blood pressure 111/57, respiratory rate 18, pulse is 91 and regular, temperature 99.2, oxygen saturation is 94% on room air. HEENT: Normocephalic, atraumatic, otherwise unremarkable. NECK: Supple. Negative for carotid bruit, lymphadenopathy, JVD or thyromegaly. LUNGS: Clear to A and P. CARDIOVASCULAR: Regular rate rhythm. Normal S1, S2. There is no S3, S4, murmur. ABDOMEN: Soft. Bowel sounds positive. EXTREMITIES: Negative for cyanosis, clubbing, pitting edema. MENTAL STATUS: The patient is alert and oriented to place and time. Speech is fluent, but delayed in response. Language, judgment and abstracting thinking are fair. The patient denies hallucination or delusion. CRANIAL NERVES: Visual rivera are full. The pupils are reactive to light and accommodation. The extraocular movements are intact. There is no nystagmus. There is no facial, motor or sensory deficit. Hearing appeared to be intact. The palate is elevated symmetrically. Sternocleidomastoid muscles are powerful bilaterally. The patient shrugs her shoulders symmetrically, protrudes her tongue in the midline without fasciculation or atrophy. MOTOR EXAMINATION: No focal muscle bulk was seen. The tone is normal. The strength is 4/5 throughout. There is some decreased range of motions of the left lower extremity secondary to pain of the left hip. Sensory examination revealed normal pinprick, light touch senses throughout. Deep tendon reflexes were symmetric and active without pathologic responses. Gait not tested. LABORATORY DATA: CBC revealed white blood cells of 6.2 thousand, hemoglobin 12.6, hematocrit 37.7, platelet count 176,000. Chemistry revealed sodium of 138, potassium 4.3, chloride 102, CO2 of 26, BUN 22, creatinine 0.9, glucose is 155, calcium 9. Troponin level less than 0.017. Urinalysis is positive for nitrite and large for urinary leukocyte esterase with white blood cells more than 40. DIAGNOSTIC DATA: Hip and pelvic x-ray revealed acute nondisplaced fracture of the left inferior pubic ramus. Nonenhanced head CT scan revealed no evidence of acute intracranial process, but it showed chronic small vessel ischemic disease with old left basal ganglia lacune infarct and old infarct of the right and left centrum semiovale. CT of the cervical spine revealed no evidence of acute findings, but it showed some degenerative disk disease, more advanced at C4-C6. A bone scan revealed no abnormalities, but showed a chronic healed fixed fracture of the left lateral tibial plateau. IMPRESSION: 1. Status post fall resulted in an incomplete fracture of the inferior pubic ramus. 2. Residual of previous stroke in summer of 2016, presented with some language dysfunction and gait disturbances. 3. Urinary tract infections, history of hypertension and hyperlipidemia. RECOMMENDATIONS: 1. The patient has been scheduled to have echocardiogram and carotid Doppler study. 2. Continue with current management initiated by Dr. Edge and treat urinary tract infections. M Oralia PEACOCK MD DR: BLESSING/dodie JOB#: [id number] / [id number]
== END 2017-12-12 12:55 | disposition short-term general hospital (02) ==
LOC: ER 12:05 → 1 SOUTH 14:25 → INTOOBSV 14:25
PROVIDERS: ADMIT Family Medicine; ATTEND Family Medicine
DX: S32.592A Other specified fracture of left pubis, initial encounter for closed fracture (principal); W19.XXXA Unspecified fall, initial encounter; Y93.89 Activity, other specified; Y92.89 Other specified places as the place of occurrence of the external cause; Y99.8 Other external cause status; Z87.891 Personal history of nicotine dependence; Z96.659 Presence of unspecified artificial knee joint; I10 Essential (primary) hypertension; E11.9 Type 2 diabetes mellitus without complications; E78.5 Hyperlipidemia, unspecified
CPT/HCPCS: 36415; 70450; 72125; 72128; 72131; 73502; 73562; 78300; 80053; 80061; 81001; 82947; 85025; 85027; 87040; 87086; 87186; 90471; 90732; 93880; 96372; 96374; 99285; A9503; G0378; G0379; J1650; J1815; J3010; 97110; 97116; 97530; 97535

== ENCOUNTER 2018-09-29 20:31 | Emergency (ER) | payer OTHER ==
[~2018-09-29] VITALS: Ht 162.6 cm; Wt 65.8 kg
[~2018-09-29 20:31] MED LIST: ACET-704 PO; ASPI-630 PO; ATORVASTATIN CA80 MG PO; CLOP75TA57 PO; INSU100C SQ; INSU100I13 SQ; LISI10TA2 PO
[2018-09-29] MEDS ORDERED: HYDROcodone/APAP 5/325MG 1 TAB TABLET PO ONE (21:15)
[2018-09-29] MEDS ORDERED: HYDR-3165 PO (21:22)
--- NOTE | 2018-09-29 21:22 | PHYS DOC ---
Past History Past Medical History: Arthritis, CVA, Diabetes, High Cholesterol, Hypertension Past Surgical History: Knee Replacement Additional Past Surgical Histo: knee surgery Smoking: Quit Greater Than 1 Year Alcohol Use: None Drug Use: None Adult General Chief Complaint Chief Complaint: LOWER EXT PAIN HPI HPI Patient is a 62 year old female who presents with complaint of left knee pain. Patient states that she accidentally slipped on ice in her kitchen earlier today and fell directly onto the left knee. Patient states that since her fall she is had increased swelling and pain to the left knee. Patient states that she has been having difficulty ambulating due to the pain. Patient states she took aspirin but has not taken any other medications for symptoms. The patient has had a previous injury to her left knee requiring surgery and internal fixation in the past. Review of Systems Review of Systems Constitutional: Denies fever or chills [] Eyes: Denies change in visual acuity, redness, or eye pain [] HENT: Denies nasal congestion or sore throat [] Respiratory: Denies cough or shortness of breath [] Cardiovascular: Denies chest pain or edema[] GI: Denies abdominal pain, nausea, vomiting, bloody stools or diarrhea [] : Denies dysuria or hematuria [] Musculoskeletal: Left knee pain[] Integument: Denies rash or skin lesions [] Neurologic: Denies headache, focal weakness or sensory changes [] All other systems were reviewed and found to be within normal limits, except as documented in this note. Current Medications Current Medications Current Medications Medications (Trade) Dose Ordered Sig/Natividad Start Time Stop Time Status Last Admin Dose Admin Acetaminophen/ Hydrocodone Bitart (Lortab 5/325) 1 tab 1X ONCE 09/29/18 21:15 09/29/18 21:16 UNV Allergies Allergies Allergies Coded Allergies Type Severity Reaction Last Updated Verified Penicillins Allergy Intermediate 04/10/17 Yes Physical Exam Physical Exam Constitutional: Alert, afebrile, appears in [id number] discomfort. [] HENT: Normocephalic, atraumatic, bilateral external ears normal, oropharynx moist, no oral exudates, nose normal. [] Eyes: PERRLA, EOMI, conjunctiva normal, no discharge. [] Neck: Normal range of motion, no tenderness, supple, no stridor. [] Cardiovascular:Heart rate regular rhythm, no murmur [] Lungs & Thorax: Bilateral breath sounds clear to auscultation [] Abdomen: Bowel sounds normal, soft, no tenderness, no masses, no pulsatile masses. [] Skin: Warm, dry, no erythema, no rash. [] Back: No tenderness, no CVA tenderness. [] Extremities: Anterior lateral soft tissue swelling overlying left knee joint with associated ecchymosis, tenderness to palpation along anterior and lateral joint space of left knee, no cyanosis, no clubbing, range of motion in left knee is unable to be assessed due to pain, no edema. [] Neurologic: Alert and oriented X 3, normal motor function, normal sensory function, no focal deficits noted. [] Current Patient Data Vital Signs Vital Signs Date Time Temp Pulse Resp B/P (MAP) Pulse Ox O2 Delivery O2 Flow Rate FiO2 09/29/18 20:40 98.3 109 22 141/79 (99) 97 Room Air Lab Results Not performed EKG EKG Not performed[] Radiology/Procedures Radiology/Procedures 3 view left knee x-ray interpreted by me: No fractures, internal fixation hardware appears in normal position, normal alignment of knee joint[] Course & Med Decision Making Course & Med Decision Making Pertinent Labs and Imaging studies reviewed. (See chart for details) X-rays negative for fracture. Patient treated with hydrocodone in the emergency department for pain. Advised use of roller walker at home, RICE therapy, and patient was given a small prescription of Lamont to help with pain. Recommended follow-up in the next 5 days with primary doctor if symptoms are not improving and advised return to emergency department for any worsening symptoms. Patient was understanding and in agreement with treatment plan. Dragon Disclaimer Dragon Disclaimer This electronic medical record was generated, in whole or in part, using a voice recognition dictation system. Departure Departure: Impression: Primary Impression: Contusion of left knee Disposition: HOME, SELF-CARE Condition: IMPROVED Referrals: MELQUIADES MEDEROS (PCP) Patient Instructions: Contusion, RICE - Routine Care for Injuries Additional Instructions: Follow-up with your primary doctor in 5 days for reevaluation. Return to the emergency department for any worsening symptoms. Scripts Hydrocodone Bit/Acetaminophen (NORCO 5-325 TABLET) 1 Each Tablet 1 TAB PO Q4-6HRS PRN for PAIN, #15 TAB Prov: SKYLAR GAINES MD 12/2/18 Problem Qualifiers Primary Impression: Contusion of left knee Encounter type: initial encounter Qualified Codes: S80.02XA - Contusion of left knee, initial encounter SKYLAR GAINES MD Sep 29, 2018 21:22
[2018-09-29 21:35] VITALS: BP 107/55
--- NOTE | 2018-09-29 22:39 | RAD ---
Left knee 3 views 09/29/2018: Reason for exam: Pain after falling. Postoperative changes are seen from fixation of the proximal tibia. No acute fracture or dislocation is evident. There are prominent arthritic changes, especially in the lateral compartment. There is a small joint effusion. IMPRESSION: Postoperative and degenerative changes. No apparent acute bony abnormality. Electronically signed by: Hesham Ornelas Jr., MD (09/29/2018 10:36 PM) [id number]
== END 2018-09-29 21:35 | disposition home or self-care (01) ==
LOC: ER 20:31
DX: S80.02XA Contusion of left knee, initial encounter (principal); M19.90 Unspecified osteoarthritis, unspecified site; E11.9 Type 2 diabetes mellitus without complications; E78.00 Pure hypercholesterolemia, unspecified; I10 Essential (primary) hypertension; Z86.73 Personal history of transient ischemic attack (TIA), and cerebral infarction without residual deficits; Z96.652 Presence of left artificial knee joint; Z87.891 Personal history of nicotine dependence; Z88.0 Allergy status to penicillin; W00.0XXA Fall on same level due to ice and snow, initial encounter; Y93.89 Activity, other specified; Y92.090 Kitchen in other non-institutional residence as the place of occurrence of the external cause; Y99.8 Other external cause status
CPT/HCPCS: 73562; 99284